=== PATIENT | male | born 1965 | race Caucasian/White ===

== ENCOUNTER → 2017-09-30 10:49 | Outpatient (CLI) | payer OTHER, SELFPAY ==
--- NOTE | 2017-09-30 10:57 | US_ITS ---
STUDY: SCROTUM ULTRASOUND REASON FOR EXAM: Male, 52 years old. Pain/tenderness of the left testicle. TECHNIQUE: Ultrasound evaluation of the scrotum was performed with color Doppler and static higgins-scale imaging. COMPARISON: None. FINDINGS: RIGHT TESTICLE INTRATESTICULAR: There is a normal size of the right testicle. The right testicle measures 5.3 cm x 3.4 cm x 2.9 cm. There is a homogenous echotexture. There is normal arterial and normal venous vascularity. There is no demonstrated right testicular mass or cyst. EXTRATESTICULAR: The epididymis is normal in size. The epididymis head measures 0.7 cm x 1.5 cm x 0.9 cm. There is normal vascularity of the epididymis. There is a well-defined cystic structure within the epididymis, without internal echoes, consistent with an epididymal cyst. This measures 5 mm x 4 mm x 3 mm. There is a moderate size hydrocele. There is no demonstrated varicocele. There is no demonstrated extratesticular mass or cyst. LEFT TESTICLE INTRATESTICULAR: There is a normal size of the left testicle. The left testicle measures 5.2 cm x 3.9 cm x 3.4 cm. There is a homogenous echotexture. There is normal arterial and normal venous vascularity. There is no demonstrated left testicular mass or cyst. EXTRATESTICULAR: The epididymis is normal in size. The epididymis head measures 0.7 cm x 0.8 cm x 0.9 cm. There is normal vascularity of the epididymis. There is no demonstrated epididymal cystic structure. There is a small hydrocele. There is no demonstrated varicocele. There is no demonstrated extratesticular mass or cyst. US/Testicular with Arterial Flow IMPRESSION: Bilateral hydroceles slightly more prominent on the right side. Small right epididymal cyst. Electronically Signed: Eulogio Brar MD at 14:15 EST Tel [phone], Service support ,
== END ==
PROVIDERS: Family Provider Family Medicine; PCP Family Medicine; Visit Provider Family Medicine
DX: R10.32 Left lower quadrant pain (principal)
CPT/HCPCS: 76870; 93976

== ENCOUNTER 2017-10-03 05:29 | Day surgery (SDC) | payer OTHER, SELFPAY ==
[2017-10-03 06:12] VITALS: BP 128/73; PULSE 87; RESP 18; TEMP 36.3; O2SAT 98; BMI 59.3
--- NOTE | 2017-10-03 07:22 | PCM.HP.STD ---
Problem List (1) Screen for colon cancer Status: Acute History of Present Illness Date of Admission: 10/03/17 The patient is a 52 year old M who presents for screening colonoscopy. Past Medical History Allergies No Known Allergies Allergy (Verified 09/27/17 13:10) Home Medications: Ambulatory Orders Medication Instructions Recorded Amlodipine [Norvasc] 10 mg PO DAILY 09/27/17 Cyclobenzaprine HCl 10 mg PO TID 09/27/17 [Cyclobenzaprine HCl] Dicyclomine HCl [Bentyl] 10 mg PO DAILY 09/27/17 Gabapentin [Neurontin] 300 mg PO DAILY 09/27/17 Losartan Potassium [Losartan 100 mg PO DAILY 09/27/17 Potassium] Meloxicam [Meloxicam] 15 mg PO DAILY 09/27/17 Smoking Status: Current every day smoker - *Family History Maternal History Items: No pertinent history Review of Systems Cardiovascular: Denies: Chest Pain, Chest Pressure, Chest Tightness, Palpitations Respiratory: Denies: Cough, Hemoptysis, Shortness of breath at rest, Shortness of breath upon exertion, Wheezing Gastrointestinal: Denies: Abdominal Pain, Constipation, Diarrhea, Hematemesis, Nausea, Melena, Vomiting VTE Information - Inpt Only VTE Present on Admission: No VTE Mechan Device Prophylaxis: None VTE Pharm Prophylaxis ordered?: No Reason prophylaxis not ordered:: Treatment Not Indicated Patient Problems: Active and Suspected Problems Screen for colon cancer (Acute) - Physical Exam HEENT: Atraumatic, PERRLA, EOMI, Normocephalic Lungs: Clear to auscultation Cardiovascular: Regular rate, Regular Rhythm, No murmurs Abdomen: Bowel Sounds Present, Soft, Non Tender, Non-Distended, Obese Vital Signs Temp Pulse Resp BP Pulse Ox 97.3 F L 87 18 128/73 H 98 10/03/17 06:12 10/03/17 06:12 10/03/17 06:12 10/03/17 06:12 10/03/17 06:12 Oxygen Delivery Method Room Air Weight: 425 lb 4.347 oz Body Mass Index (BMI) 59.3 Assessment/Plan Active and Suspected Problems Screen for colon cancer (Acute) Is to perform a screening colonoscopy
[2017-10-03 07:24] VITALS: BP 128/73; BP 142/78; PULSE 76; RESP 18; TEMP 36.9; O2SAT 99
--- NOTE | 2017-10-03 07:25 | PCM.OPRPT ---
Problem List (1) Screen for colon cancer Status: Acute Report of Operation Date of Procedure: 10/03/17 Pre-Operative Diagnosis: z12.11 screening colonoscopy Post-Operative Diagnosis: Same Surgery/Procedure Performed:: 63037 colonoscopy Type of Anesthesia:: MAC Anesthesiologist: Yobani Jung Description of Procedure: Patient was brought into the operating room. Placed in the supine position. Under excellent MAC anesthetic colonoscope was inserted into the rectum and directed through the sigmoid colon, descending colon, transverse colon, ascending colon, to the cecum. Operative findings: 1. Cecum: Normal appearance no mass lesions normal ileocecal valve. 2. Ascending colon: Normal appearance no mass lesions. 3. Transverse colon: Normal appearance no mass lesions. 4. Descending colon: Normal appearance no mass lesions. 5. Sigmoid colon normal appearance no mass lesions scattered diverticuli identified. 6. Rectum: Normal appearance no mass lesions few internal hemorrhoids were noted on retroflexion. Scope was withdrawn digital rectal exam was performed showing a small prostate and a few external hemorrhoids as well. Patient will need another colonoscopy in 10 years. - Admit VTE Documentation VTE Present on Admission: No VTE Mechan Device Prophylaxis: None VTE Pharm Prophylaxis ordered?: No Reason prophylaxis not ordered:: Treatment Not Indicated
--- NOTE | 2017-10-03 07:29 | OP.PCM_ITS ---
Problem List (1) Screen for colon cancer Status: Acute Report of Operation Date of Procedure: 10/03/17 Pre-Operative Diagnosis: z12.11 screening colonoscopy Post-Operative Diagnosis: Same Surgery/Procedure Performed:: [id number] colonoscopy Type of Anesthesia:: MAC Anesthesiologist: Yobani Jung Description of Procedure: Patient was brought into the operating room. Placed in the supine position. Under excellent MAC anesthetic colonoscope was inserted into the rectum and directed through the sigmoid colon, descending colon, transverse colon, ascending colon, to the cecum. Operative findings: 1. Cecum: Normal appearance no mass lesions normal ileocecal valve. 2. Ascending colon: Normal appearance no mass lesions. 3. Transverse colon: Normal appearance no mass lesions. 4. Descending colon: Normal appearance no mass lesions. 5. Sigmoid colon normal appearance no mass lesions scattered diverticuli identified. 6. Rectum: Normal appearance no mass lesions few internal hemorrhoids were noted on retroflexion. Scope was withdrawn digital rectal exam was performed showing a small prostate and a few external hemorrhoids as well. Patient will need another colonoscopy in 10 years. - Admit VTE Documentation VTE Present on Admission: No VTE Mechan Device Prophylaxis: None VTE Pharm Prophylaxis ordered?: No Reason prophylaxis not ordered:: Treatment Not Indicated
[2017-10-03 07:30] VITALS: BP 128/73; BP 128/82; PULSE 80; RESP 18; O2SAT 96
[2017-10-03 07:35] VITALS: BP 128/73; BP 130/80; PULSE 76; RESP 18; O2SAT 98
[2017-10-03 07:40] VITALS: BP 128/73; BP 141/82; PULSE 76; RESP 18; TEMP 37.6; O2SAT 99
[2017-10-03 07:50] VITALS: BP 128/73
== END 2017-10-03 07:55 | disposition home or self-care (01) ==
LOC: EN 05:29 → AC 06:09
PROVIDERS: Family Provider Family Medicine; PCP Family Medicine; Visit Provider Surgery
PROC: 0DJD8ZZ Inspection of Lower Intestinal Tract, Via Natural or Artificial Opening Endoscopic (ICD-10-PCS; CPT 45378; principal; 2017-10-03 06:55)
DX: Z12.11 Encounter for screening for malignant neoplasm of colon (principal); K57.30 Diverticulosis of large intestine without perforation or abscess without bleeding; K64.8 Other hemorrhoids; K64.4 Residual hemorrhoidal skin tags; I10 Essential (primary) hypertension; J45.909 Unspecified asthma, uncomplicated; K58.9 Irritable bowel syndrome, unspecified; K21.9 Gastro-esophageal reflux disease without esophagitis; F17.200 Nicotine dependence, unspecified, uncomplicated; Z79.899 Other long term (current) drug therapy
CPT/HCPCS: 45378; J7120

== ENCOUNTER → 2017-10-04 10:37 | Outpatient (CLI) | payer OTHER, SELFPAY ==
[2017-10-04 12:03] LABS: Erythrocyte Sedimentation Rate 35 mm/hr (0-20)
[2017-10-04 12:05] LABS: Absolute Lymphocyte Count 2.16 X10^3/ul (0.83-4.51); Absolute Neutrophil Count 5.6 X10^3/uL (2.0-7.7); Basophil# 0.02 X10^3/uL; Basophil% 0.2 % (0-1); Eosinophils% 1.2 % (0-5); Hematocrit 45.2 % (40-54); Hemoglobin 15.3 g/dl (13.0-16.5); Lymphocyte # 2.16 X10^3/ul (4.0); Lymphocyte % 25.5 % (19-41); Mean Corp Hgb Conc 33.8 g/gl (32-36); Mean Corpuscular Hgb 29.1 pg (27.0-32.0); Mean Corpuscular Volume 86.1 fL (80-94); Mean Platelet Vol. 13.1 fl (6.2-12.0); Monocyte# 0.59 X10^3/uL; Neutrophil # 5.59 X10^3/uL (2.7-7.7); Neutrophil % 65.9 % (47-70); Platelet Count 221 K/mm3 (150-450); RBC Distribution Width CV 14.1 % (11.6-14.6); RBC Distribution Width SD 44.2 fl (35.1-43.9); Red Blood Count 5.25 M/mm3 (4.6-6.2); White Blood Count 8.5 K/mm3 (4.4-11.0)
[2017-10-04 12:11] LABS: POSITIVE COUNT NO; POSITIVE DIFFERENTIAL NO; POSITIVE MORPHOLOGY NO
[2017-10-04 12:20] LABS: ALB/GLOB Ratio 0.9 RATIO (0.9-2.4); AST(SGOT) 28 U/L (15-37); Alanine Aminotransfer ALT/SGPT 39 U/L (16-61); Albumin, Serum 3.7 g/dL (3.2-5.0); Alkaline Phosphatase 108 U/L (45-117); Anion Gap 5 (5-15); BUN 18 mg/dL (7-18); BUN/Creat Ratio 17.5 RATIO (10-20); Calcium,Total 8.4 mg/dL (8.5-10.1); Chloride 108 mmol/L (98-107); Creatinine, Serum 1.03 mg/dL (0.70-1.30); EST Glomerular Filtration Rate 81 mL/min (>60); Est Glom Filt Rate - Afr Amer 98 mL/min (>60); Glucose 93 mg/dL (74-106); Potassium 4.1 mmol/L (3.5-5.1); Protein, Total 7.7 g/dL (6.4-8.2); Sodium Level 140 mmol/L (136-145); Thyroid Stim Hormone (TSH) 1.52 uIU/mL (0.358-3.74)
[2017-10-06 12:07] LABS: Endomysial Antibody IgA Negative (Negative)
[2017-10-06 15:24] LABS: Deamidated Gliadin IgA 5 units (0-19); Deamidated Gliadin IgG 6 units (0-19); Immunoglobulin A 106 mg/dL (90-386); t-Transglutaminase IgA <2 U/mL (0-3)
== END ==
PROVIDERS: Family Provider Family Medicine; PCP Family Medicine; Visit Provider Family Medicine
DX: K58.9 Irritable bowel syndrome, unspecified (principal)
CPT/HCPCS: 36415; 80053; 82784; 83516; 84443; 85025; 85652; 86255

== ENCOUNTER → 2017-10-05 10:42 | Outpatient (CLI) | payer OTHER, SELFPAY ==
[2017-10-09 06:23] LABS: H. PYLORI STOOL AG Negative (Negative)
== END ==
PROVIDERS: Family Provider Family Medicine; PCP Family Medicine; Visit Provider Family Medicine
DX: K58.9 Irritable bowel syndrome, unspecified (principal)
CPT/HCPCS: 82271; 82274; 83630; 87177; 87209; 87493

== ENCOUNTER → 2018-04-25 09:57 | Outpatient (CLI) | payer OTHER, SELFPAY ==
[2018-04-25 12:14] LABS: ALB/GLOB Ratio 0.9 RATIO (0.9-2.4); AST(SGOT) 25 U/L (15-37); Alanine Aminotransfer ALT/SGPT 33 U/L (16-61); Albumin, Serum 3.6 g/dL (3.2-5.0); Alkaline Phosphatase 95 U/L (45-117); Anion Gap 6 (5-15); BUN 16 mg/dL (7-18); BUN/Creat Ratio 15.5 RATIO (10-20); Chloride 106 mmol/L (98-107); Cholesterol 145 mg/dL (200); Creatinine, Serum 1.03 mg/dL (0.70-1.30); EST Glomerular Filtration Rate 80 mL/min (>60); Est Glom Filt Rate - Afr Amer 97 mL/min (>60); Globulin 3.9 g/dL (2.2-4.2); Glucose 113 mg/dL (74-106); High Density Lipoprotein 42 mg/dL; Protein, Total 7.5 g/dL (6.4-8.2); Sodium Level 138 mmol/L (136-145); Triglycerides 89 mg/dL; Very Low Density Lipoprotein 18 mg/dL (5-40)
== END ==
PROVIDERS: Family Provider Family Medicine; PCP Family Medicine; Visit Provider Family Medicine
DX: I10 Essential (primary) hypertension (principal)
CPT/HCPCS: 36415; 80053; 80061

== ENCOUNTER → 2018-11-13 | Outpatient (CLI) | payer OTHER, SELFPAY ==
--- NOTE | 2018-11-13 09:41 | RAD_ITS ---
STUDY: X-RAY - RIGHT SHOULDER REASON FOR EXAM: Male, 53 years old. Pain status post fall TECHNIQUE: 3 view(s) of the shoulder. COMPARISON: None. FINDINGS: Osseous alignments appear anatomic. The glenohumeral articulation appears normal. There is no radiopaque joint loose body. There is mild osteoarthritis. There is a well-corticated exostosis/spur extending from the inferior glenoid fossa. There is mild dysmorphology of the humeral head with linear and curvilinear sclerosis. The remainder of the exam including visualized chest and cardiomediastinal silhouette appear unremarkable. Incidental note is made of moderate to severe diffuse spinal changes including visualized inferior cervical spine RAD/Shoulder min 2 Views IMPRESSION: No plain film evidence of acute osseous abnormality. Mild glenohumeral osteoarthritis. Degenerative spurring of the subchondral glenoid fossa. Recommendation: If internal derangement is clinically suspected, recommend evaluation with MRI. Electronically Signed: Jf Mesa MD at 14:55 EDT , Service support ,
== END | disposition home or self-care (01) ==
LOC: MTRAD 09:34
PROVIDERS: Family Provider Family Medicine; PCP Family Medicine; Referring Provider Family Medicine; Visit Provider Family Medicine
DX: M25.511 Pain in right shoulder (principal)
CPT/HCPCS: 73030

== ENCOUNTER → 2021-07-06 10:01 | Outpatient (CLI) | payer OTHER, SELFPAY ==
[2021-07-06 12:59] LABS: ALB/GLOB Ratio 0.9 RATIO (0.9-2.4); AST(SGOT) 27 U/L (15-37); Alanine Aminotransfer ALT/SGPT 46 U/L (16-61); Albumin, Serum 3.7 g/dL (3.2-5.0); Alkaline Phosphatase 110 U/L (45-117); Anion Gap 6 (5-15); BUN 15 mg/dL (7-18); BUN/Creat Ratio 10.2 RATIO (10-20); Calcium,Total 8.6 mg/dL (8.5-10.1); Chloride 109 mmol/L (98-107); Cholesterol 137 mg/dL (200); Creatinine, Serum 1.47 mg/dL (0.70-1.30); EST Glomerular Filtration Rate 53 mL/min (>60); Est Glom Filt Rate - Afr Amer 64 mL/min (>60); Globulin 4.1 g/dL (2.2-4.2); Glucose 95 mg/dL (74-106); High Density Lipoprotein 30 mg/dL; PSA,Total - Annual Screen 2.26 ng/mL (0.00-4.00); Potassium 4.3 mmol/L (3.5-5.1); Protein, Total 7.8 g/dL (6.4-8.2); Sodium Level 140 mmol/L (136-145); Triglycerides 123 mg/dL; Very Low Density Lipoprotein 25 mg/dL (5-40)
== END ==
PROVIDERS: PCP Family Medicine; Visit Provider Family Medicine
DX: R73.01 Impaired fasting glucose (principal); Z12.5 Encounter for screening for malignant neoplasm of prostate
CPT/HCPCS: 36415; 80053; 80061; 84153; G0103